=== PATIENT | female | born 1995 | race Caucasian/White ===

== ENCOUNTER 2017-10-17 19:43 | Emergency (ER) | payer MEDICAID ==
[~2017-10-17] VITALS: Ht 154.9 cm; Wt 79.4 kg
[2017-10-17 20:09] VITALS: Ht 154.9 cm; Wt 79.4 kg
[2017-10-17 21:43] VITALS: BP 116/80
== END 2017-10-17 21:43 | disposition home or self-care (01) ==
LOC: ED 19:43
DX: S63.502A Unspecified sprain of left wrist, initial encounter (principal); W19.XXXA Unspecified fall, initial encounter; Y93.89 Activity, other specified; Y92.89 Other specified places as the place of occurrence of the external cause; Y99.8 Other external cause status

== ENCOUNTER 2018-01-06 20:35 | Emergency (ER) | payer OTHER ==
[~2018-01-06] VITALS: Ht 157.5 cm; Wt 80.4 kg
[2018-01-06 20:46] VITALS: Ht 157.5 cm; Wt 80.4 kg
[2018-01-06 21:45] VITALS: BP 113/62
== END 2018-01-06 22:23 | disposition home or self-care (01) ==
LOC: ED 20:35
DX: R11.10 Vomiting, unspecified (principal); R19.7 Diarrhea, unspecified; R42 Dizziness and giddiness
CPT/HCPCS: J0500; Q0162

== ENCOUNTER 2019-10-27 13:41 | Emergency (ER) | payer MEDICAID ==
[~2019-10-27] VITALS: Ht 157.5 cm; Wt 77.1 kg
[2019-10-27 13:54] VITALS: Ht 157.5 cm; Wt 77.1 kg
[2019-10-27 14:49] VITALS: BP 106/73
== END 2019-10-27 15:29 | disposition home or self-care (01) ==
LOC: ED 13:41
DX: S93.601A Unspecified sprain of right foot, initial encounter (principal); W17.89XA Other fall from one level to another, initial encounter; Y93.89 Activity, other specified; Y92.89 Other specified places as the place of occurrence of the external cause; Y99.8 Other external cause status
CPT/HCPCS: Q0092